=== PATIENT | female | born 1990 | race Caucasian/White ===

== ENCOUNTER 2016-08-21 17:16 | Emergency (ER) | payer OTHER ==
--- NOTE | ~2016-08-21 | EKG ---
PATIENT: JOHANNY CONSTANTINO UNIT #: [id number] Ventricular Rate: 92 BPM Atrial Rate: 92 BPM P-R Interval: 146 ms QRS Duration: 86 ms Q-T Interval: 356 ms QTC Calculation(Bezet): 440 ms P [place]: 32 degrees Calculated R [place]: 15 degrees Calculated T [place]: 19 degrees Diagnosis Line: Normal sinus rhythm Diagnosis Line: Nonspecific T wave abnormality Diagnosis Line: Abnormal ECG Diagnosis Line: No previous ECGs available Diagnosis Line: Confirmed by AMBER LENZ MD ([id number]) on 08/22/2016 Diagnosis Line: 4:38:45 PM INTERPRETING MD: YOANNA HUTCHINS
[~2016-08-21 17:16] MED LIST: ACETAMINOPHEN PO; AURALGAN EAR DR14 ML OT; AZITHROMYCIN1 GM PO; BACTRIM DS TABL1 TA1 PO; CEPACOL SORE TH1 LOZ PO; CIPRO PO; DICLOFENAC PO; DOXYCYCLINE HY100 M1 PO; FLEXERIL10 MG PO; FLINTSTONES T100 MCG PO; MACROBID100 MG PO; MACRODANTIN PO; NO MEDICATIONS; NUVARING V1 VAG.RING VG; ONDANSETRON HCL4 MG PO; ORUDIS75 M1 DOB; PHENERGAN PO; PHENERGAN PR; PHENERGAN25 MG PO; PYRIDIUM100 MG PO; ZITHROMAX1 G/PKT PO; ZYRTEC10 M2 PO
[2016-08-21 17:51] LABS: POC - CKMB <1.0 ng/mL (0.0-7.9); POC - TROPONIN <0.05 ng/mL (<=0.05)
[2016-08-21 18:10] LABS: URINE SOURCE CLEAN CATCH
[2016-08-21 18:16] LABS: BASOPHIL% 0.5 % (0-2.5); EOSINOPHIL% 0.3 % (0.0-7.0); HEMATOCRIT 36.6 % (35.0-45.0); HEMOGLOBIN 11.3 gm/dL (12.0-16.0); LYMPHOCYTE# 0.8 X10e3 (1.0-3.5); LYMPHOCYTE% 7.9 % (17.0-45.0); MEAN CELL VOLUME 74.8 FL (83-96); MEAN CORPUSCULAR HEMOGLOBIN 23.1 PG (28-34); MEAN CORPUSCULAR HGB CONC 30.9 g/dL (30-36); MEAN PLATELET VOLUME 7.8 FL (6.5-11.5); MONOCYTE# 0.6 X10e3 (0-1.0); MONOCYTE% 5.8 % (3.0-12.0); NEUTROPHIL# 8.5 X10e3 (1.5-7.1); NEUTROPHIL% 85.5 % (40-75); PLATELET COUNT 384 X10e3 (140-420); RED CELL DISTRIBUTION WIDTH 16.8 % (11.0-15.5)
[2016-08-21 18:17] LABS: DIFF IND NO
[2016-08-21 18:18] LABS: URINE APPEARANCE CLEAR; URINE BILIRUBIN NEG (NEG); URINE BLOOD NEG (NEG); URINE COLOR YELLOW; URINE GLUCOSE NEG (NEG); URINE KETONE TRACE (NEG); URINE LEUKOCYTE ESTERASE 1+ (NEG); URINE NITRATE NEG (NEG); URINE PH 5.5 (5-8); URINE PROTEIN NEG (NEG); URINE SPECIFIC GRAVITY 1.035 (1.003-1.035)
[2016-08-21 18:22] LABS: CULTURE INDICATED? YES; URINE BACTERIA AUWI 1+ (NEGATIVE); URINE SQUAMOUS EPITHELIAL CELL FEW /[HPF]
[2016-08-21 18:24] LABS: ALBUMIN SERUM 4.4 g/dL (3.5-5.0); BILIRUBIN, DIRECT 0.1 mg/dL (0.0-0.2); BILIRUBIN,INDIRECT 0.5 mg/dL (0.0-0.9); BILIRUBIN,TOTAL 0.6 mg/dL (0.2-2.0); CALCIUM SERUM 8.8 mg/dL (8.4-10.2); CREATININE SERUM 0.5 mg/dL (0.6-1.4); GLOM FILT RATE Estimated 134.5 mL/min (>60); POTASSIUM 3.4 mmol/L (3.5-5.1); PROTEIN TOTAL SERUM 8.4 g/dL (6.0-8.3)
== END 2016-08-21 18:43 | disposition home or self-care (01) ==
LOC: CED 17:16
PROVIDERS: Emergency Medicine
DX: O23.41 Unspecified infection of urinary tract in pregnancy, first trimester (principal); O99.341 Other mental disorders complicating pregnancy, first trimester; F41.9 Anxiety disorder, unspecified; O99.331 Smoking (tobacco) complicating pregnancy, first trimester; F17.200 Nicotine dependence, unspecified, uncomplicated
CPT/HCPCS: 36415; 80048; 80076; 81003; 82553; 82947; 84484; 84702; 84703; 85025; 87086; 93005; 96360; 99284